=== PATIENT | female | born 1940 | race Caucasian/White ===

== ENCOUNTER → 2017-01-22 | Outpatient (CLI) | payer MEDICARE, OTHER ==
--- NOTE | 2017-01-22 21:29 | US ---
EXAM DESCRIPTION: Venous,Lower Extremity LT CLINICAL HISTORY: EDEMA COMPARISON: None Available. TECHNIQUE: Left lower extremity venous duplex. Rascon scale, color Doppler imaging, and spectral pulse Doppler evaluation was performed. FINDINGS: There is no DVT identified. No filling defects are noted. There is normal color flow observed with good flow augmentation. All deep veins compress normally. IMPRESSION: Negative left lower extremity DVT sonogram. Electronically signed by: Blaine Sosa MD 01/22/2017 9:28 PM CDT
== END ==
LOC: US 09:38
PROVIDERS: ATTEND Family Medicine
DX: R60.0 Localized edema (principal)

== ENCOUNTER → 2018-01-23 | Outpatient (CLI) | payer MEDICARE, OTHER | LOC: GMAL 11:15 | PROVIDERS: ATTEND Family Medicine | DX: D51.3 Other dietary vitamin B12 deficiency anemia (principal); R53.82 Chronic fatigue, unspecified; E55.9 Vitamin D deficiency, unspecified ==

== ENCOUNTER → 2018-02-10 | Outpatient (CLI) | payer MEDICARE, OTHER ==
--- NOTE | 2018-02-12 08:38 | MAM ---
EXAM DESCRIPTION: 3D Screening BILATERAL : Digital Mammography. CLINICAL HISTORY: 77 years Female SCREENING . No complaints. Mother and sister with ovarian cancer. Remote family history of ovarian cancer. No family history breast cancer. Hysterectomy. Has taken HRT 5 or more years ago. COMPARISON: 2-D digital bilateral screening study 07/08/2016. Reports from prior examinations also reviewed. TECHNIQUE: Bilateral CC and MLO projection full-field images, 3-D tomosynthesis digital mammographic technique. Also bilateral synthesized CC/ MLO full-field images. CAD not utilized. FINDINGS: The breast parenchymal density pattern is: Heterogeneously dense breast tissue, which may obscure small masses. No skin thickening or nipple retraction left axillary lymph node. Bilateral vascular calcifications. Bilateral solitary calcifications.. Focal asymmetry at the 1200 clock position of the anterior middle third of the left breast approximately 6 cm from the nipple. Associated with vascular and parenchymal calcifications. No focal, stellate mass or density, focal asymmetry , and no suspicious microcalcifications right breast Stable right breast mammograms compared to prior study, taking into account differences in mammographic technique IMPRESSION: BI-RADS CATEGORY: 0 - INCOMPLETE- Need additional imaging evaluation. FOLLOW-UP: Recall for additional imaging: Diagnostic 3-D tomosynthesis bilateral LM full-field images. Magnification 2-D CC image of the anterior left breast. Targeted left breast ultrasound of the region of interest depending on follow-up diagnostic images.. Written communication concerning the IMPRESSION and Follow-up, will be mailed to the patient and referring health care provider. Electronically signed by: Clay Hair MD 02/12/2018 8:36 AM CDT
== END ==
LOC: MAMMO 10:00
PROVIDERS: ATTEND Family Medicine
DX: Z12.31 Encounter for screening mammogram for malignant neoplasm of breast (principal)

== ENCOUNTER → 2018-02-25 | Outpatient (CLI) | payer MEDICARE, OTHER ==
--- NOTE | 2018-02-25 12:11 | MAM ---
EXAM DESCRIPTION: 3D Diagnostic, Bilateral: Digital Mammography CLINICAL HISTORY: 77 yearsFemaleABNORMAL MAMMOGRAM focal asymmetry in the upper mid left breast. COMPARISON: Diagnostic 3-D tomosynthesis bilateral mammographic examination 02/25/2018.. Targeted left breast ultrasound following this examination. Reports from prior examinations also reviewed. TECHNIQUE: Bilateral LM projection full-field images, 3-D tomosynthesis digital mammographic technique. Also bilateral synthesized LM full-field images. 2-D spot magnification images of the mid left breast CC and LM projections. CAD for 2-D images only. FINDINGS: The breast parenchymal density pattern is: Heterogeneously dense breast tissue, which may obscure small masses. No skin thickening or nipple retraction vascular calcifications. Heterogeneously dense tissues mostly anterior. Solitary and grouped microcalcifications. No focal asymmetry or mass density in the right breast. ULTRASOUND: Scanning at the 1200- 100 clock position of the left breast 3 cm from the nipple. Multiple, well-defined, anechoic structures with thin gonzales, parallel orientation, and posterior enhancement features. Not vascular. Consistent with cysts. No distinct solid mass. No abnormal calcifications or parenchymal edema. No abnormal Doppler vascularity. No overlying skin changes. IMPRESSION: BI-RADS CATEGORY: 2 - BENIGN FINDINGS. FOLLOW UP: Return to routine digital bilateral screening, one year interval from February 2018. The FINDINGS and the FOLLOW-UP plan were reviewed in person with the patient after the examination. Written communication explaining the IMPRESSION and FOLLOW-UP will be mailed to the patient and referring care provider. According to the [employer], yearly mammograms are recommended starting at age 40 and continuing as long as a woman is in good health. Any breast change noted on a breast self-exam should be reported promptly to the patient's healthcare provider. Breast MRI is recommended for women with an approximately 20-25% or greater lifetime risk of breast cancer, including women with a strong family history of breast or ovarian cancer and women who have been treated for Hodgkin's disease. A negative mammographic report should not delay tissue diagnosis in patients with significant clinical history or physical findings. Extremely dense breast tissue limits the sensitivity of digital mammography. Electronically signed by: Clay Hair MD 02/25/2018 12:10 PM CDT
--- NOTE | 2018-02-25 12:11 | US ---
EXAM DESCRIPTION: Breast,Left: Ultrasound CLINICAL HISTORY: 77 yearsFemaleABNORMAL MAMMO COMPARISON: Digital diagnostic 3-D tomosynthesis bilateral mammography on this visit. TECHNIQUE: Transcutaneous scanning of the left breast utilizing two-dimensional and Doppler modes. Scanning performed by the maintenance assistant and Dr. Hair. FINDINGS: Scanning at the 1200- 100 clock position of the left breast 3 cm from the nipple. Multiple, well-defined, anechoic structures with thin gonzales, parallel orientation, and posterior enhancement features. Not vascular. Consistent with cysts. No distinct solid mass. No abnormal calcifications or parenchymal edema. No abnormal Doppler vascularity. No overlying skin changes. IMPRESSION: 1. Bi-Rads Category 2: Benign. 2. Please refer to bilateral diagnostic 3-D tomosynthesis mammographic examination and report on this visit. The FINDINGS and the FOLLOW-UP plan were reviewed in person with the patient after the examination. Written communication explaining the IMPRESSION and FOLLOW-UP will be mailed to the patient and referring care provider. Electronically signed by: Clay Hair MD 02/25/2018 12:10 PM CDT
== END ==
LOC: MAMMO 09:55
PROVIDERS: ATTEND Family Medicine
DX: R92.8 Other abnormal and inconclusive findings on diagnostic imaging of breast (principal)
CPT/HCPCS: 76641; 77066; G0279

== ENCOUNTER → 2018-05-05 | Outpatient (CLI) | payer MEDICARE, OTHER | LOC: GMAL 10:43 | PROVIDERS: ATTEND Family Medicine | DX: D51.3 Other dietary vitamin B12 deficiency anemia (principal); E55.9 Vitamin D deficiency, unspecified ==

== ENCOUNTER → 2018-05-12 | Outpatient (CLI) | payer MEDICARE, OTHER | LOC: GMA 11:52 | PROVIDERS: ATTEND Family Medicine | DX: I50.9 Heart failure, unspecified (principal); E11.9 Type 2 diabetes mellitus without complications ==

== ENCOUNTER → 2018-11-19 | Outpatient (CLI) | payer MEDICARE, OTHER ==
--- NOTE | 2018-11-19 08:28 | MRI ---
EXAM DESCRIPTION: Brain w/oContrast CLINICAL HISTORY: CVA COMPARISON: Previous MRI of the brain September 26, 2015 TECHNIQUE: Non contrast MRI of the brain is performed according to our usual protocol including multiplanar multi sequence technique. FINDINGS: Sagittal T1 images show intact corpus callosum. Normal pituitary gland with normal T1 appearance of the candelario and medulla and upper cervical cord. Normal signal intensity within the clivus and calvarium. Axial T2 fat sat images reveal preservation of intracranial vascular flow voids. Normal castañeda matter T2 signal intensity. Extensive white matter T2 hyperintensity. Large ventricles and sulci are consistent with age-related cerebral volume loss. These findings are stable compared to the previous exam in September 2015. The globes appear intact and symmetrical. No abnormal fluid signal in the paranasal sinuses, tympanic cavities or mastoid air cells. Axial flair images show extensive abnormal increased signal intensity within the cerebral white matter consistent with chronic confluent microvascular ischemic changes. There has been mild generalized progression since previous study. Diffusion weighted images are negative for focal intense increased signal intensity in the brain parenchyma to suggest restricted diffusion. ADC mapping is negative. Axial T1 images show normal castañeda-white matter differentiation. No high signal intensity hemorrhagic lesion of the brain parenchyma. No subdural hematoma. Axial susceptibility weighted images show a single punctate focus of signal loss in the left periventricular white matter consistent with focal hemosiderin deposition or calcification.. This was not present on the previous study. IMPRESSION: Senescent brain with extensive chronic microvascular ischemic changes in the cerebral white matter. No acute infarction. Electronically signed by: Maynor Hays MD 11/19/2018 8:27 AM [facility]
== END ==
LOC: MRI 07:00
PROVIDERS: ATTEND Family Medicine
DX: I63.50 Cerebral infarction due to unspecified occlusion or stenosis of unspecified cerebral artery (principal)

== ENCOUNTER → 2019-09-22 | Outpatient (CLI) | payer MEDICARE, OTHER | LOC: GMAL 10:28 | PROVIDERS: ATTEND Family Medicine | DX: D51.3 Other dietary vitamin B12 deficiency anemia (principal); R53.82 Chronic fatigue, unspecified; E55.9 Vitamin D deficiency, unspecified; E11.9 Type 2 diabetes mellitus without complications; I10 Essential (primary) hypertension; E78.2 Mixed hyperlipidemia ==

== ENCOUNTER → 2020-02-23 | Outpatient (CLI) | payer MEDICARE, OTHER | LOC: GMAL 11:26 | PROVIDERS: ATTEND Family Medicine | DX: R53.82 Chronic fatigue, unspecified (principal); E78.2 Mixed hyperlipidemia; E11.9 Type 2 diabetes mellitus without complications; M10.9 Gout, unspecified ==

== ENCOUNTER 2020-09-14 15:29 | Emergency (ER) | payer MEDICARE, OTHER ==
[2020-09-14] MEDS ORDERED: MORPHINE SULFATE INJ 10 MG/ML VIAL IV ONE (15:44)
[2020-09-14] MEDS ORDERED: ONDANSETRON INJ 4 MG/2 ML VIAL IV ONE (15:44)
--- NOTE | 2020-09-14 15:47 | ED.PDOC ---
History of Present Illness - General Chief Complaint: General Time Seen by Provider: 09/14/20 15:38 Source: patient, RN notes reviewed, Vital Signs reviewed Exam Limitations: no limitations - History of Present Illness Initial Comments: Patient is an 79-year-old female who presented to the ED with 2-week history of left lateral abdominal pain and left hip pain. She denies any injury, trauma or fall before the symptoms started. States the pain is in the left hip region but she is not sure whether it is her hip or her intestines. She has also had upper abdominal pain 2 weeks ago whenever she would eat, but that seems to have improved since she started taking Prilosec last week. Also reports having nonbloody diarrhea for the past 10 days. She denies any fever, nausea, vomiting, chest pain. The pain is worse with any type of movement but she states she also has pain whenever she is lying still. Denies incontinence or any urinary symptoms. Has been taking Tylenol at home with some relief. Allergies/Adverse Reactions: Allergies Tetanus Toxoid Allergy (Intermediate, Unverified 09/14/20 16:33) Home Medications: Ambulatory Orders Acetaminophen W/ Codeine [Tylenol W/ CODEINE #3] 1 tablet PO Q6H PRN #20 09/14/20 Ondansetron HCl [Zofran] 4 mg PO Q6HR PRN #15 tab 09/14/20 Review of Systems - Review of Systems Constitutional: Denies: chills, fever, weakness EENTM: Denies: blurred vision, nose congestion, throat pain Respiratory: Denies: cough, short of breath Cardiology: Denies: chest pain, palpitations, syncope Gastrointestinal/Abdominal: States: abdominal pain, diarrhea. Denies: nausea, vomiting Genitourinary: Denies: dysuria, frequency, hematuria Musculoskeletal: States: joint pain - left hip Skin: Denies: rash Neurological: Denies: headache, paresthesia All other Systems: Reviewed and Negative Physical Exam - Physical Exam General Appearance: Alert, Other - Lying on bed still. Pain worsens with movement. Neck: non-tender, full range of motion, supple Respiratory: chest non-tender, lungs clear, normal breath sounds, no respiratory distress Cardiovascular/Chest: regular rate, rhythm, no edema Peripheral Pulses: posterior tibialis,right: 2+, posterior tibialis,left: 2+ Gastrointestinal/Abdominal: other - soft, TTP LLQ. No guarding or rigidity. no CVA tenderness Back Exam: other - TTP diffusely to left lower back and left posterior hip Extremity: other - Pain with ROM left hip Neurologic: no motor/sensory deficits, alert, normal mood/affect Skin Exam: normal color, warm/dry Progress - Progress Progress: 09/14/20 16:48 Pt has refused pain medications. Is requesting COVID test. 09/14/20 17:24 Patient presents with 2-week history of left-sided abdominal pain and left hip pain. States she does not know if it is coming from her colon or her hip. She denies fever or any urinary symptoms. CT of the abdomen performed to evaluate for diverticulitis versus hip pathology versus kidney stone and is unremarkable. Labs and Covid test are reassuring. While patient was in the ED her pain resolved spontaneously and she declined any pain medications. States she has no pain at this time. She states every time she takes an insulin shot that is when her pain and nausea began she is concerned she may be allergic to her insulin. I have asked her to follow-up with her doctor tomorrow for further evaluation of diabetes management. Will treat with pain medication and nausea medication as needed and I have asked her to follow-up with PCP for continued evaluation. Strict return precautions given. - Results/Orders Results/Orders: CT abd/pelvis FINDINGS: Bibasilar volume loss. No focal consolidation or suspicious pulmonary nodule. Evaluation limited by lack of intravenous contrast. Hepatic steatosis. The gallbladder is not identified. The spleen, and pancreas are unremarkable. Redemonstrated benign bilateral adrenal adenomas which are stable in size. Normal renal contours. No hydronephrosis. No urolithiasis. There is a mural calcification associated with the anterior bladder. Scattered colonic diverticula without focal inflammatory change. No evidence of bowel obstruction. No findings to suggest appendicitis. No adenopathy. No focal fluid collection. No free air. Normal caliber abdominal aorta. No acute or suspicious osseous abnormality. Scattered degenerative changes present.. IMPRESSION: No evidence of acute process in the abdomen or pelvis. COVID negative 09/14/20 15:44 IV:Start .ONCE Laboratory Results - last 24 hr 09/14/20 09/14/20 09/14/20 16:00 16:00 16:53 WBC 11.5 H RBC 4.16 L Hgb 12.2 Hct 36.3 MCV 87.2 MCH 29.4 MCHC 33.7 RDW 13.6 Plt Count 299 MPV 9.3 Absolute Neuts (auto) 7.00 H Absolute Lymphs (auto) 3.20 Absolute Monos (auto) 0.90 H Absolute Eos (auto) 0.30 Absolute Basos (auto) 0.10 Neutrophils % 60.9 Lymphocytes % 28.0 Monocytes % 7.9 Eosinophils % 2.3 Basophils % 0.9 Sodium 139 Potassium 4.3 Chloride 103 Carbon Dioxide 24 Anion Gap 16.3 BUN 17 Creatinine 0.78 BUN/Creatinine Ratio 21.8 H Random Glucose 179 H Serum Osmolality 283.6 Calcium 9.2 Total Bilirubin 0.4 AST 26 ALT 27 Alkaline Phosphatase 72 Serum Total Protein 7.0 Albumin 4.0 Globulin 3.0 Albumin/Globulin Ratio 1.3 Lipase 40 Urine Color Yellow Urine Appearance Clear Urine pH 5.0 Ur Specific Williams 1.020 Urine Protein Negative Urine Glucose (UA) Negative Urine Ketones Negative Urine Blood Negative Urine Nitrite Negative Urine Bilirubin Negative Urine Urobilinogen 0.2 Ur Leukocyte Esterase Negative Urine RBC 0-1 Urine WBC 3-5 H Ur Epithelial Cells 3-5 Urine Bacteria 0 Departure - Departure Clinical Impression: Left sided abdominal pain, Left hip pain Time of Disposition: 17:28 Disposition: Discharge to Home or Self Care Condition: Good Departure Forms: ED Discharge - Pt. Copy, Patient Portal Self Enrollment Instructions: Acute Abdomen (Belly Pain), Adult (DC) Diet: bland diet Activity: increase activity as tolerated Referrals: Mal Nava III, MD [Primary Care Provider] - 1-2 Weeks Prescriptions: Ondansetron HCl [Zofran] 4 mg PO Q6HR PRN #15 tab PRN Reason: Nausea Acetaminophen W/ Codeine [Tylenol W/ CODEINE #3] 1 tablet PO Q6H PRN #20 PRN Reason: Pain Home Medications: Ambulatory Orders Acetaminophen W/ Codeine [Tylenol W/ CODEINE #3] 1 tablet PO Q6H PRN #20 09/14/20 Ondansetron HCl [Zofran] 4 mg PO Q6HR PRN #15 tab 09/14/20
--- NOTE | 2020-09-14 16:36 | CT ---
EXAM DESCRIPTION: Abdoment/Pelvis w/o Contrast CLINICAL HISTORY: 79 years Female, left flank and left hip pain TECHNIQUE: This exam was performed according to our departmental dose-optimization program, which includes automated exposure control, adjustment of the mA and/or kV according to patient size and/or use of iterative reconstruction technique. COMPARISON: November 2011 FINDINGS: Bibasilar volume loss. No focal consolidation or suspicious pulmonary nodule. Evaluation limited by lack of intravenous contrast. Hepatic steatosis. The gallbladder is not identified. The spleen, and pancreas are unremarkable. Redemonstrated benign bilateral adrenal adenomas which are stable in size. Normal renal contours. No hydronephrosis. No urolithiasis. There is a mural calcification associated with the anterior bladder. Scattered colonic diverticula without focal inflammatory change. No evidence of bowel obstruction. No findings to suggest appendicitis. No adenopathy. No focal fluid collection. No free air. Normal caliber abdominal aorta. No acute or suspicious osseous abnormality. Scattered degenerative changes present.. IMPRESSION: No evidence of acute process in the abdomen or pelvis. Electronically signed by: Adan Lynn MD 09/14/2020 4:35 PM [facility]
[2020-09-14 19:26] VITALS: TEMP 98.1
[2020-09-14 19:39] VITALS: BP 164/65; O2SAT 96
== END 2020-09-14 17:45 | disposition home or self-care (01) ==
LOC: ER 15:29
DX: R10.9 Unspecified abdominal pain (principal); M25.552 Pain in left hip; R19.7 Diarrhea, unspecified; Z20.828 Contact with and (suspected) exposure to other viral communicable diseases; Z88.7 Allergy status to serum and vaccine
CPT/HCPCS: 36415; 74176; 80053; 81001; 83690; 85025; 87635; J2405

== ENCOUNTER → 2020-09-20 | Outpatient (CLI) | payer MEDICARE, OTHER ==
--- NOTE | 2020-09-21 09:56 | MRI ---
EXAM DESCRIPTION: Lumbar Spine w/o Contrast : Magnetic Resonance Imaging. CLINICAL HISTORY: RADICULOPATHY COMPARISON: None. TECHNIQUE: Multiplanar, multiple standard sequences, non contrast MRI, lumbar spine. FINDINGS: L5-S1: The disc is well visualized on axial T2 series 501, image 3. L5-S1: Disc desiccation and disc space maintained. Small posterior midline bulge. Minimal hypertrophy of the posterior flavum ligaments and facet joints (canal elements). AP canal diameter 11 mm. Moderate right foraminal narrowing and [id number] left foraminal narrowing. L4-L5: Disc desiccation and moderate disc space loss. Anterior bulging and endplate ridging. Grade 1 anterolisthesis 2 mm. Posterior broad-based bulge. Hypertrophic changes in the canal elements. AP canal diameter 11 mm. Moderate endplate reactive changes and disc space narrowing prominent on the right with disc spur complex encroaching on the right foramen stenosis and compromise right L4 nerve. Mild narrowing of the left foramen. L3-L4: Disc desiccation and minimal disc space loss. Anterior bulging and endplate ridging. Grade 1 anterolisthesis 2 mm. Posterior broad-based bulge. Mild spondylosis and increased disc space narrowing on the left. Disc spur complex encroaching on the left foramen with severe narrowing, abutting the left L3 nerve. Moderate hypertrophic changes in the canal elements. AP canal diameter 9 mm. Mild to moderate narrowing of the right foramen. L2-L3: Disc desiccation with disc space maintained. Minimal posterior bulge. Hypertrophic changes in the canal elements. AP canal diameter 9 mm. Mild bilateral foraminal narrowing. Well-circumscribed hyperintense T1 and T2 hemangioma in the mid L2 vertebral body L1-L2: Disc desiccation and minimal disc space loss. Hypertrophic changes in the canal elements. AP canal diameter 12 mm. An active Schmorl's node superior L2 endplate. Mild to moderate bilateral foraminal narrowing. Conus terminates at this level. T12-L1: Disc unremarkable. Early left anterior mild spondylosis. Canal elements are negative. Bilateral foramina and canal is patent. Minimal lumbar levoscoliosis. Paravertebral soft tissues negative. Distal cord normal signal and caliber. Otherwise normal marrow signal in the remaining vertebral bodies and the posterior elements. Vertebral bodies are not compressed at any level. IMPRESSION: 1. Multiple levels of hypertrophic changes in the facet joints and posterior flavum ligaments. Multilevel disc desiccation and bulging. 2. Moderate spondylosis on the right at L4-L5 with disc spur complex encroaching on the right foramen and possible compromise right L4 nerve. Moderate central canal stenosis. 3. Spondylosis on the left at L3-L4 with severe foraminal narrowing by disc spur complex, abutting the left L3 nerve. Mild central canal stenosis. Mild central canal stenosis also at L2-L3 with hypertrophic changes in the canal and disc bulging at both levels. 4. Please refer to FINDINGS for discussion of results and other disc space levels. Electronically signed by: Clay Hair MD 09/21/2020 9:54 AM [facility]
== END ==
LOC: MRI 08:46
PROVIDERS: ATTEND Family Medicine
DX: M47.26 Other spondylosis with radiculopathy, lumbar region (principal); M47.25 Other spondylosis with radiculopathy, thoracolumbar region; M51.16 Intervertebral disc disorders with radiculopathy, lumbar region; M51.17 Intervertebral disc disorders with radiculopathy, lumbosacral region; M48.061 Spinal stenosis, lumbar region without neurogenic claudication; M46.96 Unspecified inflammatory spondylopathy, lumbar region; M25.78 Osteophyte, vertebrae; M24.28 Disorder of ligament, vertebrae; M51.46 Schmorl's nodes, lumbar region; M43.16 Spondylolisthesis, lumbar region

== ENCOUNTER 2020-10-09 05:37 | Day surgery (SDC) | payer MEDICARE, OTHER ==
[2020-10-09] MEDS ORDERED: LIDOCAINE 1% 10 ML VIAL INJ ONE ×2 (07:17→09:17)
[2020-10-09] MEDS ORDERED: BUPIVACAINE 0.5% 30 ML VIAL INJ ONE ×2 (07:18→09:10)
[2020-10-09] MEDS ORDERED: DEXAMETHASONE INJ 10 MG/ML VIAL ONE ×2 (07:18→09:03)
[2020-10-09] MEDS ORDERED: DEXAMETHASONE INJ 10 MG/ML VIAL IV ONE (09:17)
== END 2020-10-09 09:43 | disposition home or self-care (01) ==
LOC: AMB 05:37
PROVIDERS: ATTEND Family Medicine Sports Medicine
DX: M54.5 Low back pain (principal); M54.16 Radiculopathy, lumbar region; E78.5 Hyperlipidemia, unspecified; I10 Essential (primary) hypertension; E11.9 Type 2 diabetes mellitus without complications; F03.90 Unspecified dementia, unspecified severity, without behavioral disturbance, psychotic disturbance, mood disturbance, and anxiety; Z86.718 Personal history of other venous thrombosis and embolism; Z88.0 Allergy status to penicillin; Z88.8 Allergy status to other drugs, medicaments and biological substances; Z79.4 Long term (current) use of insulin; Z79.899 Other long term (current) drug therapy
CPT/HCPCS: 36416; 64483; 64484; 76000; 82948; J1100